=== PATIENT | female | born 1995 | race African-American/Black ===

== ENCOUNTER 2023-10-17 06:13 | Emergency (ER) | payer OTHER ==
[~2023-10-17] VITALS: Ht 170.2 cm; Wt 83.0 kg
[2023-10-17 06:23] VITALS: O2SAT 100
[2023-10-17] MEDS ORDERED: LIDOCAINE HCL/PF 1% 10 MG/ML 5ML VIAL INFIL ONE (06:45)
[2023-10-17 09:24] VITALS: BP 116/78; PULSE 80; RESP 16; TEMP 98.1
== END 2023-10-17 09:25 | disposition home or self-care (01) ==
LOC: ER 06:13 → EDBD 06:13 → ER 09:25
DX: S61.213A Laceration without foreign body of left middle finger without damage to nail, initial encounter (principal); S61.215A Laceration without foreign body of left ring finger without damage to nail, initial encounter; X58.XXXA Exposure to other specified factors, initial encounter; Y93.89 Activity, other specified; Y92.89 Other specified places as the place of occurrence of the external cause; Y99.8 Other external cause status
CPT/HCPCS: 12001; 99282; J3490; Z7610

== ENCOUNTER 2023-10-27 15:21 | Emergency (ER) | payer OTHER ==
[~2023-10-27] VITALS: Ht 175.3 cm; Wt 100.0 kg
[2023-10-27 15:23] VITALS: O2SAT 100
[2023-10-27] MEDS ORDERED: BACITRACIN ZINC OINT UDPKT TOP ONE (16:15)
[2023-10-27 17:13] VITALS: BP 140/85; PULSE 100; RESP 18; TEMP 98
== END 2023-10-27 17:16 | disposition home or self-care (01) ==
LOC: ER 15:21
DX: S61.212D Laceration without foreign body of right middle finger without damage to nail, subsequent encounter (principal); X58.XXXD Exposure to other specified factors, subsequent encounter
CPT/HCPCS: 99282; Z7610